=== PATIENT | male | born 1995 | race Caucasian/White ===

== ENCOUNTER 2017-09-01 23:53 | Emergency (ER) | payer BC ==
[2017-09-01 23:58] VITALS: BP 131/65
[2017-09-02] MEDS ORDERED: AMOXICILLIN 250 MG PREPACK#4 BTL TAKEHOME ONE (00:30)
--- NOTE | 2017-09-02 00:30 | EDPHY ---
H & P Stated Complaint: left ear pain Time Seen by Provider: 09/02/17 00:16 HPI/ROS: HPI The patient presents with left ear pain which has been present for the last several days. She has been diagnosed with acute otitis externa. She has no prior history of urine infections. She was initially started on an antibiotic ear drops at [facility] 2 days ago but had continued pain. Yesterday, she went to see ENT Jose Pierce and a ear wick was placed and the patient was started on combination ofloxacin and steroid ear drop. She has had increasing pain tonight in her ear. She has no drainage, changes in her hearing. She did have a fever yesterday. She has tried taking ibuprofen, however this is not helped the pain. She took a single Percocet at home. REVIEW OF SYSTEMS Constitutional: No fever, no chills. Eyes: No discharge. ENT: No sore throat. Skin: No rashes. Neurological: No headache. PMHx: Healthy Soc Hx: College student PHYSICAL General Appearance: Alert, no distress Eyes: Pupils equal and round no pallor or injection ENT, Mouth: Mucous membranes moist, left ear with tragal tenderness, wick in good position with no surrounding drainage Respiratory: Breathing comfortably Neurological: A&O, moves all extremities Skin: Warm and dry, no rashes Musculoskeletal: Neck is supple non tender Extremities: symmetrical, full range of motion Psychiatric: Patient is oriented X 3, there is no agitation Source: Patient Exam Limitations: No limitations - Personal History Current Tetanus Diphtheria and Acellular Pertussis (TDAP): Yes - Medical/Surgical History Hx Asthma: No Hx Chronic Respiratory Disease: No Hx Diabetes: No Hx Cardiac Disease: No Hx Renal Disease: No Hx Cirrhosis: No Hx Alcoholism: No Hx HIV/AIDS: No Hx Splenectomy or Spleen Trauma: No - Social History Smoking Status: Heavy smoker Constitutional: Initial Vital Signs Temperature (C) 36.5 C 09/01/17 23:55 Heart Rate 63 09/01/17 23:55 Respiratory Rate 20 09/01/17 23:55 Blood Pressure 131/65 H 09/01/17 23:55 O2 Sat (%) 96 09/01/17 23:55 Allergies/Adverse Reactions: No Known Allergies Allergy (Unverified 09/01/17 23:55) Home Medications: Medication Instructions Recorded Amoxicillin Trihydrate [Amoxil] 500 mg PO Q12H 7 Days cap 09/02/17 Medical Decision Making Differential Diagnosis: 22-year-old female, recently diagnosed with otitis externa, currently with ear wick in place and started on Ciprodex ear drops presents with ear pain. She has not had a fever for the last 24 hr. She has not had increased drainage of the ear. I suspect she is having pain from her infection. I have treated her here with Toradol IM and will send her home with a short course of Percocet. I have advised her that she needs to take ibuprofen 600 mg every 6 hr. If she is still having pain, then she can use the Percocet. I have advised her to follow up in 2 days with ENT if her pain continues. - Data Points Medications Given: Discontinued Medications Amoxicillin (Amoxil Chewable 250 Mg Prepack#4) 1 btl TAKEHOME EDNOW ONE PRN Reason: Protocol Stop: 09/02/17 00:31 Last Admin: 09/02/17 00:35 Dose: 1 btl Amoxicillin (Amoxicillin) 500 mg PO EDNOW ONE PRN Reason: Protocol Stop: 09/02/17 00:31 Last Admin: 09/02/17 00:34 Dose: 500 mg Departure - Departure Disposition: Home, Routine, Self-Care Clinical Impression: Acute otitis media Condition: Good Instructions: Amoxicillin (By mouth), Ear Infection (ED), Warm Compress or Soak (ED) Additional Instructions: Please follow-up with your regular doctor if you're not better in 1-2 days. Referrals: NONE *PRIMARY CARE P,. [Primary Care Provider] - As per Instructions Prescriptions: Amoxicillin Trihydrate [Amoxil] 500 mg PO Q12H 7 Days cap
== END 2017-09-02 00:38 | disposition home or self-care (01) ==
DX: H66.92 Otitis media, unspecified, left ear (principal); F17.200 Nicotine dependence, unspecified, uncomplicated

== ENCOUNTER 2018-09-08 05:20 | Emergency (ER) | payer BC | END 2018-09-08 06:46 | disposition home or self-care (01) ==